=== PATIENT | female | born 1975 | race African-American/Black ===

== ENCOUNTER 2018-11-03 04:13 | Inpatient (IN) | payer MEDICAID ==
[~2018-11-03] VITALS: Ht 165.1 cm; Wt 112.9 kg
[2018-11-03] MEDS ORDERED: MORPHINE SULFATE 4 MG/ML CPJ (NOT FOR IM USE) IV STA (04:50)
[2018-11-03] MEDS ORDERED: ONDANSETRON HCL 4MG/2ML INJ IV STA (04:50)
[2018-11-03 05:23] LABS: CLARITY URINE CLEAR (CLEAR); COLOR URINE YELLOW (YELLOW); KETONES URINE NEGATIVE (NEGATIVE); LEUKOCYTE ESTERASE URINE 3+ (NEGATIVE); NITRITE URINE NEGATIVE (NEGATIVE); OCCULT BLOOD URINE 2+ (NEGATIVE); PH URINE 7.5 (4.5-8.0); PROTEIN URINE NEGATIVE (NEGATIVE); SPECIFIC GRAVITY URINE 1.008 (1.005-1.030); UROBILINOGEN URINE 0.2 E.U./dL (0.2-1.0)
[2018-11-03 05:27] LABS: CHLORIDE 104 mEq/L (98-107)
[2018-11-03 05:31] LABS: BASOPHILS % 0.5 % (0.0-2.0); EOSINOPHILS % 2.5 % (0.0-5.0); HEMATOCRIT. 37.2 % (36.0-48.0); HEMOGLOBIN. 12.4 g/dL (12.0-16.0); LYMPHOCYTES % 15.5 % (20.0-50.0); MEAN CORPUSCULAR HEMOGLOBIN 28.8 pg (28.0-32.0); MEAN CORPUSCULAR VOLUME 86.1 fL (81.0-99.0); MEAN PLATELET VOLUME 7.8 fl (7.4-10.4); NEUTROPHILS % 76.5 % (40.0-76.0); PLATELET 311 x1000/uL (130-400); RED BLOOD CELL COUNT 4.32 mill/uL (4.2-5.4); RED CELL DISTRIBUTION WIDTH 14.5 % (11.6-14.6)
[2018-11-03 05:36] LABS: HCG SCREEN NEGATIVE
[2018-11-03] MEDS ORDERED: ONDANSETRON 4MG ODT PO ONE (05:45)
[2018-11-03] MEDS ORDERED: SODIUM CHLORIDE 0.9% 1,000 ML IV ONE ×2 (06:16)
[2018-11-03] MEDS ORDERED: CEFTRIAXONE 1 G PREMIX 50 ML IV ONE (06:30)
[2018-11-03] MEDS ORDERED: SODIUM BICARBONATE 4% (2.4MEQ) 5ML VIAL IV ONE (07:47)
[2018-11-03] MEDS ORDERED: LIDOCAINE HCL 1% 20ML VIAL (Pyxis) INJ ONE (07:47)
[2018-11-03 10:30] LABS: PROTHROMBIN TIME 10.6 sec (9.6-11.0)
[2018-11-03] MEDS: SODIUM CHLORIDE 0.9% 1,000 ML IV SCH (10:54)
[2018-11-03] MEDS ORDERED: LORAZEPAM 0.5MG TABLET PO PRN (11:00)
[2018-11-03] MEDS ORDERED: IPRATROPIUM/ALBUTEROL 0.5-3(2.5)MG/3ML NEB INH PRN (11:00)
[2018-11-03] MEDS ORDERED: GUAIFENESIN 200MG/10ML SUGAR FREE UDC PO PRN (11:00)
[2018-11-03] MEDS ORDERED: DOCUSATE SODIUM 100MG CAPSULE PO PRN (11:00)
[2018-11-03] MEDS ORDERED: MAGNESIUM/ALUMINUM HYDROXIDE/SIMETHICONE 30ML UDC PO PRN (11:00)
[2018-11-03] MEDS ORDERED: KETOROLAC 15MG/ML VIAL IV PRN (11:00)
[2018-11-03] MEDS ORDERED: CLONIDINE 0.1MG TABLET PO PRN (11:00)
[2018-11-03] MEDS ORDERED: ACETAMINOPHEN 325MG TABLET PO PRN (11:00)
[2018-11-03] MEDS ORDERED: ONDANSETRON HCL 4MG/2ML INJ IV PRN (11:00)
[2018-11-03] MEDS ORDERED: TRAMADOL 50MG TABLET PO PRN (11:00)
[2018-11-03] MEDS ORDERED: COR25 MT (11:01)
[2018-11-03] MEDS ORDERED: LIP40 MT (11:01)
[2018-11-03] MEDS ORDERED: FURO-151 MT (11:01)
[2018-11-03] MEDS ORDERED: BENA40TA9 MT (11:02)
[2018-11-03 12:00] VITALS: BP 151/80
[2018-11-03] MEDS: ENOXAPARIN 30MG/0.3ML SYR SUBCUT SCH ×2 (12:09→21:12)
[2018-11-03] MEDS: TAMSULOSIN HCL 0.4MG SR CAPSULE PO SCH ×2 (12:10→21:12)
[2018-11-03] MEDS: LEVOFLOXACIN 500MG PREMIX 100 ML IV SCH (13:18)
[2018-11-03 14:23] VITALS: BP 156/86
[2018-11-03 16:00] VITALS: BP 115/68
[2018-11-03 20:00] VITALS: BP 138/79
[2018-11-03] MEDS ORDERED: ZOLPIDEM TARTRATE 5MG TABLET PO PRN (21:00)
[2018-11-03] MEDS: FAMOTIDINE 20MG TABLET PO SCH (21:12)
[2018-11-04] VITALS: BP 131/60
[2018-11-04 04:00] VITALS: BP 137/50
[2018-11-04] MEDS: SODIUM CHLORIDE 0.9% 1,000 ML IV SCH (06:51)
[2018-11-04 07:53] LABS: *BARBITURATES SCREEN URINE NEGATIVE (NEGATIVE); *BENZODIAZEPINES SCREEN URINE NEGATIVE (NEGATIVE); *COCAINE SCREEN URINE NEGATIVE (NEGATIVE); CANNABINOID URINE SCREEN NEGATIVE (NEGATIVE)
[2018-11-04 07:54] LABS: PHENCYCLIDINE URINE SCREEN NEGATIVE (NEGATIVE)
[2018-11-04 07:59] LABS: *AMPHETAMINES SCREEN URINE PRESUMTIVE POSITIVE (NEGATIVE)
[2018-11-04 08:00] VITALS: BP 127/72
[2018-11-04 08:00] LABS: METHADONE URINE SCREEN NEGATIVE (NEGATIVE)
[2018-11-04 08:01] LABS: OPIATES URINE SCREEN NEGATIVE (NEGATIVE)
[2018-11-04] MEDS: ENOXAPARIN 30MG/0.3ML SYR SUBCUT SCH (08:54)
[2018-11-04] MEDS: FAMOTIDINE 20MG TABLET PO SCH (08:57)
[2018-11-04] MEDS: TAMSULOSIN HCL 0.4MG SR CAPSULE PO SCH (08:57)
[2018-11-04] MEDS ORDERED: CEFTRIAXONE 1 G PREMIX 50 ML IV SCH (09:00)
[2018-11-04] MEDS: LEVOFLOXACIN 500MG PREMIX 100 ML IV SCH (11:10)
[2018-11-04 11:16] VITALS: BP 127/72
[2018-11-04 12:00] VITALS: BP 138/84
== END 2018-11-04 13:25 | disposition home or self-care (01) | DRG 463 ==
LOC: ER 04:13 → 8WST 06:36 → EDBEDREQ 06:39 → EDBEDREQTM 06:39 → ENRESERV 07:14
PROVIDERS: ADMIT Internal Medicine; ATTEND Internal Medicine
PROC: 02HV33Z Insertion of Infusion Device into Superior Vena Cava, Percutaneous Approach (ICD-10-PCS; principal; 2018-11-03)
PROC: B5181ZA Fluoroscopy of Superior Vena Cava using Low Osmolar Contrast, Guidance (ICD-10-PCS; 2018-11-03)
PROC: B548ZZA Ultrasonography of Superior Vena Cava, Guidance (ICD-10-PCS; 2018-11-03)
DX: N13.6 Pyonephrosis (principal); I11.0 Hypertensive heart disease with heart failure; I50.9 Heart failure, unspecified; E66.9 Obesity, unspecified; F15.10 Other stimulant abuse, uncomplicated; F17.210 Nicotine dependence, cigarettes, uncomplicated; Z87.442 Personal history of urinary calculi; Z68.41 Body mass index [BMI] 40.0-44.9, adult; Z79.899 Other long term (current) drug therapy
CPT/HCPCS: 36415; 36569; 36573; 74176; 80305; 83036; 83605; 84703; 87077; 87186; 96374; 96375; 99285; C1725; J0696; J1650; J1885; J1956; J2270; J2405; J3490; J7030; J7050; Q0162